=== PATIENT | female | born 1940 | race Caucasian/White ===

== ENCOUNTER 2021-12-17 06:07 | Emergency (ER) | payer MEDICARE, OTHER ==
[~2021-12-17] VITALS: Ht 167.6 cm; Wt 69.3 kg
[~2021-12-17 06:07] MED LIST: CHOL20004 PO; FLAX SEED PO; FLAX100031 PO; GLUC100017 PO; MULT-785 PO; PREVCR VG; RED30POW; UBID10CA4 PO; VITC500T PO; [UNRECOGNIZED DRUG - CODE] PO
[2021-12-17 06:45] LABS: BASOPHILS % (AUTO) 0.7 % (0-1); EOSINOPHILS # (AUTO) 0.1 X10'3 (0-0.9); EOSINOPHILS % (AUTO) 1.9 % (0-6); HEMATOCRIT 36.5 % (35.0-45.0); HEMOGLOBIN 12.3 g/dl (12.0-16.0); LYMPHOCYTES % (AUTO) 17.7 % (21-51); MEAN CORPUSCULAR HEMOGLOBIN 30.4 PG (27.0-31.0); MEAN CORPUSCULAR HGB CONC 33.7 g/dL (33.0-36.5); MEAN CORPUSCULAR VOLUME 90.2 FL (78-98); MEAN PLATELET VOLUME 7.1 FL (7.4-10.4); MONOCYTES # (AUTO) 0.5 X10'3 (0-0.9); MONOCYTES % (AUTO) 8.7 % (2-12); NEUTROPHILS # (AUTO) 4.1 X10'3 (1.8-7.7); PLATELET COUNT 269 X10'3 (140-440); RED BLOOD COUNT 4.05 X10'6 (4.20-5.60); RED CELL DISTRIBUTION WIDTH 12.6 % (11.5-14.5); WHITE BLOOD COUNT 5.8 X10'3 (4.5-11.0)
[2021-12-17 06:47] LABS: CLARITY,URINE CLEAR (Clear); COLOR,URINE YELLOW (Yellow); GLUCOSE, URINE NEGATIVE (Neg); KETONES,URINE NEGATIVE (Neg); LEUKOCYTE ESTERASE ,URINE NEGATIVE (Neg); NITRITES, URINE NEGATIVE (Neg); OCCULT BLOOD,URINE MODERATE (Neg); PROTEIN,URINE NEGATIVE (Neg); UROBILINOGEN,URINE 0.2 E.U/dL (0.2-1.0)
[2021-12-17 06:49] LABS: UA COLLECTION TYPE CLN CATCH MIDSTREAM
[2021-12-17 07:00] LABS: WBC,URINE NONE SEEN /HPF (0-4)
[2021-12-17 07:01] LABS: BACTERIA,URINE N /HPF (Neg); SQUAMOUS EPITHELIAL CELL,UR FEW /LPF (FEW)
[2021-12-17 07:07] LABS: ALANINE AMINOTRANSFERASE 16 U/L (12-78); ALBUMIN 3.7 G/DL (3.4-5.0); ALBUMIN/GLOBULIN RATIO 1.1 (1.1-1.5); ALKALINE PHOSPHATASE 59 IU/L (46-116); ANION GAP 8 (8-16); ASPARTATE AMINO TRANSFERASE 12 U/L (10-37); BILIRUBIN,TOTAL 0.4 MG/DL (0.1-1.0); BLOOD UREA NITROGEN 21 MG/DL (7-18); BUN/CREATININE RATIO 26.9 (6.6-38.0); CALCIUM 8.6 MG/DL (8.5-10.1); CHLORIDE 102 MMOL/L (99-107); CREATININE 0.78 MG/DL (0.40-0.90); GLUCOSE 102 MG/DL (70-104); LIPASE 130 U/L (73-393); SODIUM 137 MMOL/L (135-145); TOTAL CARBON DIOXIDE 27.5 MMOL/L (24-32); eGFR 71 ML/MIN
[2021-12-17 08:30] VITALS: BP 124/69
== END 2021-12-17 08:42 | disposition home or self-care (01) ==
LOC: ER 06:07
DX: K59.00 Constipation, unspecified (principal); R10.84 Generalized abdominal pain; R10.11 Right upper quadrant pain; Z87.19 Personal history of other diseases of the digestive system; Z87.440 Personal history of urinary (tract) infections; Z90.710 Acquired absence of both cervix and uterus; Z79.899 Other long term (current) drug therapy
CPT/HCPCS: 36415; 74176; 80053; 81001; 83690; 85025; 99284

== ENCOUNTER 2023-11-25 11:43 | Emergency (ER) | payer MEDICARE, OTHER ==
[~2023-11-25] VITALS: Ht 167.6 cm; Wt 61.0 kg
[2023-11-25 15:54] VITALS: BP 161/75; PULSE 97; RESP 16; TEMP 98.2; O2SAT 96
== END 2023-11-25 15:55 | disposition home or self-care (01) ==
LOC: ER 11:44
DX: R00.0 Tachycardia, unspecified (principal); N39.0 Urinary tract infection, site not specified; T37.8X5A Adverse effect of other specified systemic anti-infectives and antiparasitics, initial encounter; Y92.89 Other specified places as the place of occurrence of the external cause; I49.9 Cardiac arrhythmia, unspecified; Z90.49 Acquired absence of other specified parts of digestive tract
CPT/HCPCS: 93005; 99283